=== PATIENT | male | born 1945 | race Caucasian/White ===

== ENCOUNTER 2021-05-19 14:18 | Inpatient (IN) | payer MEDICARE, OTHER ==
[2021-05-19 15:23] LABS: ALT (SGPT) 29 U/L (8-55); AST (SGOT) 32 U/L (5-34); Alkaline Phosphatase 116 U/L (40-110); Anion Gap 19 mmol/L (10-20); BUN (Urea Nitrogen) 34 mg/dL (8.4-25.7); Bilirubin, Total 1.5 mg/dL (0.2-1.2); Calc. Creatinine Clearance 0 mL/min (70-130); Carbon Dioxide 24 mmol/L (23-31); Chloride 103 mmol/L (98-107); Globulin 2.7 g/dL (2.4-3.5); Glucose 148 mg/dL (83-110); Potassium 4.5 mmol/L (3.5-5.1); Protein, Total 6.7 g/dL (5.8-8.1); Sodium 141 mmol/L (136-145)
[2021-05-19 15:25] LABS: #Monocytes 1.7 10x3/uL (0.0-1.1); #Neutrophils 12.9 10x3/uL (1.5-8.4); %Basophils 0.3 % (0.0-2.0); %Eosinophils 0.2 % (0.0-6.0); %Lymphocytes 7.3 % (18.0-47.0); %Monocytes 10.9 % (0.0-10.0); %Neutrophils 80.7 % (40.0-75.0); Mean Corpuscular HGB CONC 30.7 g/dL (32.0-36.0); Mean Corpuscular Hemoglobin 28.3 pg (27.0-33.0); Mean Corpuscular Volume 92.3 fl (81.2-95.1); Mean Platelet Volume 9.8 fl (7.4-10.4); Platelet Count 357 10x3/uL (150-450); RBC Distribution Width 14.8 % (11.5-14.5); Red Blood Cell (RBC) Count 4.94 10x6/uL (4.32-5.72)
[2021-05-19 16:31] LABS: Bilirubin 1+ (Negative); Blood, Urine 150 (Negative); Clarity Clear (Clear); Glucose, Urine (Dipstick) Normal (Negative); Ketone, Urine Negative (Negative); Leukocyte 25 (Negative); Nitrite Negative (Negative); Protein, Urine (Dipstick) 100 mg/dl (Neg-Trace); Specific Gravity, Urine 1.015 (1.002-1.036)
[2021-05-19 16:42] LABS: Bacteria/HPF Rare-Few HPF (None Seen); Squamous Epithelial 0-3 HPF (0-3); WBC/HPF 0-3 HPF (0-3)
[2021-05-19 16:43] LABS: Mucous/LPF Rare LPF (<2+); RBC/HPF Greater than 50 HPF (0-3)
[2021-05-19] MEDS ORDERED: metroNIDAZOLE 500 MG/100 ML BAG ONE (17:55)
[2021-05-19] MEDS ORDERED: cefTRIAXone\\ROCEPHIN 1 GM VIAL ONE (17:55)
[2021-05-19] MEDS ORDERED: Acetaminophen 325 MG TAB PO PRN (19:37)
[2021-05-19] MEDS ORDERED: Calcium Carbonate 500 MG ChewTAB PO PRN (19:37)
[2021-05-19] MEDS ORDERED: Dextrose 50% Abboject 50 ML SYRINGE SLOW IVP PRN (19:37)
[2021-05-19] MEDS ORDERED: Dextrose 5% in Water 1,000 ML IV PRN (19:37)
[2021-05-19] MEDS ORDERED: HYDROcodone/Acetaminophen 5/325 mg Tablet PO PRN (19:37)
[2021-05-19] MEDS ORDERED: HumaLOG 300 UNITS/3 ML VIAL SC PRN (19:37)
[2021-05-19] MEDS ORDERED: Senokot S 8.6-50 MG TAB PO PRN (19:37)
[2021-05-19 20:06] VITALS: BMI 32.5
[2021-05-19] MEDS ORDERED: Sodium Chloride 0.9% 500 ML IV SCH (20:30)
[2021-05-19] MEDS ORDERED: Dronedarone HCl 400 MG TAB PO SCH (20:30)
[2021-05-19] MEDS ORDERED: Pepto Bismol Chew TAB PO PRN (20:32)
[2021-05-19] MEDS ORDERED: Lantus 1000 UNITS/10 ML VIAL SC SCH (21:00)
[2021-05-19] MEDS ORDERED: Rosuvastatin 20 MG TAB PO SCH (21:00)
[2021-05-19] MEDS: Apixaban 5 MG TAB PO SCH (21:54)
[2021-05-19] MEDS: Famotidine 20 MG TAB PO SCH (21:54)
[2021-05-19] MEDS: metroNIDAZOLE 500 MG in Premix Bag 1 BAG IVPB SCH (21:57)
[2021-05-19 23:16] LABS: Lactic Acid 1.3 mmol/L (0.5-2.2)
[2021-05-20] MEDS ORDERED: FLU VACC QS2021-22(65YR UP)/PF 240 MCG/0.7 ML SYRINGE IM ONE (01:45)
[2021-05-20] MEDS: metroNIDAZOLE 500 MG in Premix Bag 1 BAG IVPB SCH (06:24)
[2021-05-20 06:57] LABS: Hemoglobin 12.9 g/dL (13.5-17.5); Mean Corpuscular HGB CONC 30.9 g/dL (32.0-36.0); Mean Corpuscular Hemoglobin 28.8 pg (27.0-33.0); Mean Corpuscular Volume 93.3 fl (81.2-95.1); Platelet Count 265 10x3/uL (150-450); RBC Distribution Width 14.9 % (11.5-14.5); Red Blood Cell (RBC) Count 4.48 10x6/uL (4.32-5.72); White Blood Cell (WBC) Count 10.4 10x3/uL (3.5-10.5)
[2021-05-20 07:02] LABS: Anion Gap 15 mmol/L (10-20); BUN (Urea Nitrogen) 32 mg/dL (8.4-25.7); Calc. Creatinine Clearance 64 mL/min (70-130); Calcium 8.3 mg/dL (7.8-10.44); Carbon Dioxide 25 mmol/L (23-31); Chloride 106 mmol/L (98-107); Glucose 139 mg/dL (83-110); Sodium 142 mmol/L (136-145)
[2021-05-20] MEDS ORDERED: Dronedarone HCl 400 MG TAB PO SCH ×2 (08:00→17:00)
[2021-05-20 08:25] LABS: MDiff Complete? YES
[2021-05-20 08:28] LABS: Lymphocytes 17 % (21-51); Monocytes 9 % (0-10); Neutrophil 74 % (42-75)
[2021-05-20 08:29] LABS: Platelet Morphology Comment Appears Adequate; RBC Morphology Normal
[2021-05-20] MEDS ORDERED: Gabapentin 300 MG CAP PO SCH ×2 (09:00→21:00)
[2021-05-20] MEDS ORDERED: Clopidogrel Bisulfate 75 MG TAB PO SCH (09:00)
[2021-05-20] MEDS ORDERED: Furosemide 20 MG TAB PO SCH (09:00)
[2021-05-20] MEDS ORDERED: Polyethylene Glycol 3350 17 GM Packet PO SCH (09:00)
[2021-05-20] MEDS: Famotidine 20 MG TAB PO SCH (10:24)
[2021-05-20] MEDS: Apixaban 5 MG TAB PO SCH (10:24)
[2021-05-20 11:21] VITALS: TEMP 98.7
[2021-05-20 11:22] VITALS: BP 108/70
[2021-05-20] MEDS ORDERED: HYDROcodone/Acetaminophen 10/325 mg Tablet PO SCH (14:00)
[2021-05-20 15:54] LABS: SARS-CoV-2 PCR by NAA Not Detected (NotDetected)
[2021-05-20] MEDS ORDERED: cefTRIAXone\\ROCEPHIN 2 GM in Sodium Chloride 0.9% 100 ML IVPB SCH (16:00)
[2021-05-20] MEDS ORDERED: Apixaban 5 MG TAB PO SCH (21:00)
[2021-05-20] MEDS ORDERED: Rosuvastatin 20 MG TAB PO SCH (21:00)
[2021-05-20] MEDS ORDERED: Famotidine 20 MG TAB PO SCH (21:00)
[2021-05-20] MEDS ORDERED: Potassium Chloride 20 MEQ TAB PO SCH (21:00)
[2021-05-20] MEDS ORDERED: Lantus 1000 UNITS/10 ML VIAL SC SCH (21:00)
[2021-05-20] MEDS ORDERED: DROXIDOPA 300 MG PO SCH (21:00)
[2021-05-21] MEDS ORDERED: Clopidogrel Bisulfate 75 MG TAB PO SCH (09:00)
[2021-05-21] MEDS ORDERED: Furosemide 20 MG TAB PO SCH (09:00)
[2021-05-21] MEDS ORDERED: Polyethylene Glycol 3350 17 GM Packet PO SCH (09:00)
== END 2021-05-20 13:08 | disposition home or self-care (01) | DRG 394 ==
LOC: CSHERS 14:18 → CSHTELE 14:19
PROVIDERS: ADMIT Internal Medicine; ATTEND Internal Medicine
DX: K62.89 Other specified diseases of anus and rectum (principal); I50.22 Chronic systolic (congestive) heart failure; N17.9 Acute kidney failure, unspecified; I13.0 Hypertensive heart and chronic kidney disease with heart failure and stage 1 through stage 4 chronic kidney disease, or unspecified chronic kidney disease; Z20.822 Contact with and (suspected) exposure to COVID-19; K59.03 Drug induced constipation; R53.81 Other malaise; E78.2 Mixed hyperlipidemia; N18.31 Chronic kidney disease, stage 3a; E11.65 Type 2 diabetes mellitus with hyperglycemia; E11.22 Type 2 diabetes mellitus with diabetic chronic kidney disease; G89.29 Other chronic pain; T40.2X5A Adverse effect of other opioids, initial encounter; I25.10 Atherosclerotic heart disease of native coronary artery without angina pectoris; Z79.02 Long term (current) use of antithrombotics/antiplatelets; Z79.01 Long term (current) use of anticoagulants; Z79.4 Long term (current) use of insulin; Z79.899 Other long term (current) drug therapy; Z95.810 Presence of automatic (implantable) cardiac defibrillator; Z95.5 Presence of coronary angioplasty implant and graft; Z95.1 Presence of aortocoronary bypass graft; Z87.891 Personal history of nicotine dependence
CPT/HCPCS: 36415; 36416; 74177; 80048; 80053; 81003; 81015; 83605; 83880; 85025; 90471; 90662; G0008; J0696; J1815; J7030; U0003; U0005

== ENCOUNTER 2021-11-24 01:18 | Observation (INO) | payer MEDICARE ==
[2021-11-24 03:25] LABS: #Monocytes 1.5 10x3/uL (0.0-1.1); #Neutrophils 13.8 10x3/uL (1.5-8.4); %Basophils 0.2 % (0.0-2.0); %Eosinophils 0.1 % (0.0-6.0); %Lymphocytes 5.2 % (18.0-47.0); %Neutrophils 84.9 % (40.0-75.0); Hemoglobin 16.5 g/dL (13.5-17.5); Mean Corpuscular HGB CONC 33.1 g/dL (32.0-36.0); Mean Corpuscular Hemoglobin 28.7 pg (27.0-33.0); Mean Corpuscular Volume 86.8 fl (81.2-95.1); Platelet Count 291 10x3/uL (150-450); RBC Distribution Width 17.6 % (11.5-14.5); Red Blood Cell (RBC) Count 5.75 10x6/uL (4.32-5.72); White Blood Cell (WBC) Count 16.2 10x3/uL (3.5-10.5)
[2021-11-24] MEDS ORDERED: Dextrose 50% Abboject 50 ML SYRINGE SLOW IVP PRN (05:43)
[2021-11-24] MEDS ORDERED: Ondansetron PF 4 MG/2 ML Vial IVP PRN (05:43)
[2021-11-24] MEDS ORDERED: Senokot S 8.6-50 MG TAB PO PRN (05:43)
[2021-11-24] MEDS ORDERED: Calcium Carbonate 500 MG ChewTAB PO PRN (05:43)
[2021-11-24] MEDS ORDERED: Dextrose 5% in Water 1,000 ML IV PRN (05:43)
[2021-11-24] MEDS ORDERED: Lactated Ringer's 1,000 ML IV SCH (06:00)
[2021-11-24 06:48] LABS: ALT (SGPT) 25 U/L (8-55); AST (SGOT) 51 U/L (5-34); Albumin 4.3 g/dL (3.4-4.8); Alkaline Phosphatase 95 U/L (40-110); Anion Gap 24 mmol/L (10-20); BUN (Urea Nitrogen) 21 mg/dL (8.4-25.7); Bilirubin, Total 1.5 mg/dL (0.2-1.2); Calc. Creatinine Clearance 0 mL/min (70-130); Calcium 9.7 mg/dL (7.8-10.44); Carbon Dioxide 18 mmol/L (23-31); Chloride 101 mmol/L (98-107); Globulin 3.9 g/dL (2.4-3.5); Glucose 258 mg/dL (83-110); Potassium 5.5 mmol/L (3.5-5.1); Protein, Total 8.2 g/dL (5.8-8.1); Sodium 137 mmol/L (136-145)
[2021-11-24] MEDS ORDERED: DROXIDOPA 300 MG PO SCH (09:00)
[2021-11-24] MEDS: cefTRIAXone\\ROCEPHIN 1 GM in Sodium Chloride 0.9% 100 ML IVPB SCH (09:07)
[2021-11-24] MEDS: Apixaban 5 MG TAB PO SCH ×2 (09:12→21:05)
[2021-11-24] MEDS: Dronedarone HCl 400 MG TAB PO SCH ×2 (09:12→16:42)
[2021-11-24] MEDS: Clopidogrel Bisulfate 75 MG TAB PO SCH (09:12)
[2021-11-24] MEDS: metroNIDAZOLE 500 MG in Premix Bag 1 BAG IVPB SCH ×2 (10:14→16:42)
[2021-11-24] MEDS: Famotidine 20 MG TAB PO SCH ×2 (10:21→21:05)
[2021-11-24] MEDS ORDERED: Saccharomyces boulardii 250 MG CAP PO SCH (11:00)
[2021-11-24 11:05] LABS: SARS-CoV-2 NAA Rapid Test Not Detected (NotDetected)
[2021-11-24] MEDS: Insulin Regular 300 UNITS/3 ML VIAL SC PRN ×3 (12:42→21:07)
[2021-11-24 15:29] LABS: Anion Gap 14 mmol/L (10-20); BUN (Urea Nitrogen) 25 mg/dL (8.4-25.7); Calc. Creatinine Clearance 80 mL/min (70-130); Calcium 8.8 mg/dL (7.8-10.44); Carbon Dioxide 25 mmol/L (23-31); Chloride 103 mmol/L (98-107); Glucose 331 mg/dL (83-110); Potassium 5.1 mmol/L (3.5-5.1); Sodium 137 mmol/L (136-145)
[2021-11-24] MEDS ORDERED: Lantus 1000 UNITS/10 ML VIAL SC SCH (21:00)
[2021-11-24] MEDS: Gabapentin 300 MG CAP PO SCH (21:04)
[2021-11-24] MEDS: Rosuvastatin 20 MG TAB PO SCH (21:05)
[2021-11-25] MEDS: metroNIDAZOLE 500 MG in Premix Bag 1 BAG IVPB SCH ×3 (00:44→16:24)
[2021-11-25 05:57] LABS: Hemoglobin 15.1 g/dL (13.5-17.5); Mean Corpuscular HGB CONC 33.6 g/dL (32.0-36.0); Mean Corpuscular Hemoglobin 28.9 pg (27.0-33.0); Mean Platelet Volume 10.8 fl (7.4-10.4); Platelet Count 252 10x3/uL (150-450); RBC Distribution Width 17.7 % (11.5-14.5); Red Blood Cell (RBC) Count 5.23 10x6/uL (4.32-5.72)
[2021-11-25 06:18] LABS: Anion Gap 17 mmol/L (10-20); BUN (Urea Nitrogen) 26 mg/dL (8.4-25.7); Calc. Creatinine Clearance 91 mL/min (70-130); Calcium 8.3 mg/dL (7.8-10.44); Carbon Dioxide 21 mmol/L (23-31); Chloride 108 mmol/L (98-107); Glucose 148 mg/dL (83-110); Potassium 5.4 mmol/L (3.5-5.1); Sodium 141 mmol/L (136-145)
[2021-11-25 06:34] LABS: MDiff Complete? YES
[2021-11-25 06:36] LABS: Band 5 % (5-11); Lymphocytes 5 % (21-51); Monocytes 14 % (0-10); Neutrophil 76 % (42-75)
[2021-11-25 06:38] LABS: Platelet Morphology Comment Appears Adequate; RBC Morphology Normal
[2021-11-25] MEDS: Saccharomyces boulardii 250 MG CAP PO SCH (08:52)
[2021-11-25] MEDS: Apixaban 5 MG TAB PO SCH ×2 (08:52→21:24)
[2021-11-25] MEDS: Dronedarone HCl 400 MG TAB PO SCH ×2 (08:52→16:22)
[2021-11-25] MEDS: Clopidogrel Bisulfate 75 MG TAB PO SCH (08:52)
[2021-11-25] MEDS: cefTRIAXone\\ROCEPHIN 1 GM in Sodium Chloride 0.9% 100 ML IVPB SCH (08:53)
[2021-11-25] MEDS: Famotidine 20 MG TAB PO SCH ×2 (08:53→21:25)
[2021-11-25] MEDS ORDERED: Non-Formulary Medication 1 EACH (Dulaglutide [Trulicity] 1.5 MG/0.5 ML Pen.Injctr) SC SCH (11:15)
[2021-11-25] MEDS: Insulin Regular 300 UNITS/3 ML VIAL SC PRN ×3 (12:23→21:26)
[2021-11-25] MEDS: Acetaminophen 325 MG TAB PO PRN (21:23)
[2021-11-25] MEDS: Gabapentin 300 MG CAP PO SCH (21:24)
[2021-11-25] MEDS: Rosuvastatin 20 MG TAB PO SCH (21:25)
[2021-11-26] MEDS: metroNIDAZOLE 500 MG in Premix Bag 1 BAG IVPB SCH ×3 (00:20→16:54)
[2021-11-26 04:47] LABS: #Eosinphils 0.1 10x3/uL (0.0-0.5); #Monocytes 1.6 10x3/uL (0.0-1.1); #Neutrophils 7.8 10x3/uL (1.5-8.4); %Basophils 0.3 % (0.0-2.0); %Eosinophils 1.1 % (0.0-6.0); %Lymphocytes 10.9 % (18.0-47.0); %Monocytes 14.6 % (0.0-10.0); %Neutrophils 72.8 % (40.0-75.0); Hemoglobin 14.1 g/dL (13.5-17.5); Mean Corpuscular Hemoglobin 28.1 pg (27.0-33.0); Mean Corpuscular Volume 87.6 fl (81.2-95.1); Mean Platelet Volume 10.6 fl (7.4-10.4); Platelet Count 223 10x3/uL (150-450); RBC Distribution Width 17.2 % (11.5-14.5); Red Blood Cell (RBC) Count 5.02 10x6/uL (4.32-5.72); White Blood Cell (WBC) Count 10.8 10x3/uL (3.5-10.5)
[2021-11-26] MEDS: Acetaminophen 325 MG TAB PO PRN ×2 (04:53→12:36)
[2021-11-26 05:05] LABS: Anion Gap 14 mmol/L (10-20); BUN (Urea Nitrogen) 28 mg/dL (8.4-25.7); Calc. Creatinine Clearance 94 mL/min (70-130); Carbon Dioxide 23 mmol/L (23-31); Chloride 107 mmol/L (98-107); Glucose 237 mg/dL (83-110); Potassium 3.9 mmol/L (3.5-5.1); Sodium 140 mmol/L (136-145)
[2021-11-26] MEDS ORDERED: metroNIDAZOLE 500 MG/100 ML BAG ONE (08:17)
[2021-11-26] MEDS: cefTRIAXone\\ROCEPHIN 1 GM in Sodium Chloride 0.9% 100 ML IVPB SCH (08:27)
[2021-11-26] MEDS: Saccharomyces boulardii 250 MG CAP PO SCH (08:28)
[2021-11-26] MEDS: Clopidogrel Bisulfate 75 MG TAB PO SCH (08:28)
[2021-11-26] MEDS: Apixaban 5 MG TAB PO SCH ×2 (08:29→20:40)
[2021-11-26] MEDS: Dronedarone HCl 400 MG TAB PO SCH ×2 (08:29→16:54)
[2021-11-26] MEDS: Famotidine 20 MG TAB PO SCH ×2 (08:29→20:40)
[2021-11-26] MEDS: Lantus 1000 UNITS/10 ML VIAL SC SCH (08:45)
[2021-11-26] MEDS ORDERED: GoLYTELY 4,000 ml Bottle PO SCH (13:00)
[2021-11-26 13:15] LABS: Hemoglobin A1c 7.7 % (4.0-6.0)
[2021-11-26] MEDS: Insulin Regular 300 UNITS/3 ML VIAL SC PRN ×2 (16:52→23:57)
[2021-11-26] MEDS: Gabapentin 300 MG CAP PO SCH (20:39)
[2021-11-26] MEDS: Rosuvastatin 20 MG TAB PO SCH (20:40)
[2021-11-27] MEDS: Acetaminophen 325 MG TAB PO PRN (05:54)
[2021-11-27 06:53] LABS: Bilirubin Neg (Negative); Blood, Urine 250 (Negative); Clarity Slightly Cloudy (Clear); Glucose, Urine (Dipstick) 250 mg/dL (Negative); Ketone, Urine Negative (Negative); Leukocyte 25 (Negative); Nitrite Negative (Negative); Protein, Urine (Dipstick) 100 mg/dl (Neg-Trace); Specific Gravity, Urine 1.015 (1.002-1.036); Urobilinogen Normal mg/dL (Less than 2)
[2021-11-27 07:02] LABS: Bacteria/HPF None Seen HPF (None Seen); RBC/HPF Greater than 50 HPF (0-3); Squamous Epithelial 0-3 HPF (0-3); WBC/HPF 0-3 HPF (0-3)
[2021-11-27 08:22] VITALS: TEMP 98.8
[2021-11-27] MEDS: cefTRIAXone\\ROCEPHIN 1 GM in Sodium Chloride 0.9% 100 ML IVPB SCH ×2 (09:46→10:02)
[2021-11-27] MEDS: metroNIDAZOLE 500 MG in Premix Bag 1 BAG IVPB SCH ×3 (09:48→10:03)
[2021-11-27] MEDS: Dronedarone HCl 400 MG TAB PO SCH ×2 (09:49→10:03)
[2021-11-27] MEDS: Clopidogrel Bisulfate 75 MG TAB PO SCH (09:49)
[2021-11-27] MEDS: Saccharomyces boulardii 250 MG CAP PO SCH (09:49)
[2021-11-27] MEDS: Famotidine 20 MG TAB PO SCH (09:49)
[2021-11-27] MEDS: Apixaban 5 MG TAB PO SCH (09:49)
[2021-11-27] MEDS: Lantus 1000 UNITS/10 ML VIAL SC SCH (09:51)
[2021-11-27 14:23] VITALS: BP 113/62
== END 2021-11-27 11:04 | disposition home or self-care (01) ==
LOC: CSHERS 01:18 → SUATTDRO 01:18 → INTOOBSV 07:37 → CSHTELE 07:37
PROVIDERS: ADMIT Student in an Organized Health Care Education/Training Program; ATTEND Internal Medicine
DX: K59.03 Drug induced constipation (principal); T40.2X5A Adverse effect of other opioids, initial encounter; E86.0 Dehydration; N18.31 Chronic kidney disease, stage 3a; Z95.810 Presence of automatic (implantable) cardiac defibrillator; Z95.1 Presence of aortocoronary bypass graft; Z79.01 Long term (current) use of anticoagulants; Z79.02 Long term (current) use of antithrombotics/antiplatelets; E11.22 Type 2 diabetes mellitus with diabetic chronic kidney disease; I13.0 Hypertensive heart and chronic kidney disease with heart failure and stage 1 through stage 4 chronic kidney disease, or unspecified chronic kidney disease; I50.22 Chronic systolic (congestive) heart failure; I25.10 Atherosclerotic heart disease of native coronary artery without angina pectoris; Z95.5 Presence of coronary angioplasty implant and graft; E78.5 Hyperlipidemia, unspecified; Z79.899 Other long term (current) drug therapy; Z79.4 Long term (current) use of insulin; Z87.891 Personal history of nicotine dependence; Z20.822 Contact with and (suspected) exposure to COVID-19
CPT/HCPCS: 74176; 80048 ×3; 80053; 81001; 82962 ×4; 83036; 85025 ×3; 87324; 87449; 96374; 96375; 96376 ×4; 97110; 97116; 97139; 99285; G0378 ×5; U0002; 36415; 36416; J0696; J1815; J2405; J3490; J7120

== ENCOUNTER 2022-05-05 12:29 | Outpatient (CLI) | payer MEDICARE | END 2022-05-05 12:30 | disposition home or self-care (01) | LOC: CSHSPEC 12:29 | PROVIDERS: ATTEND Specialist | DX: M51.16 Intervertebral disc disorders with radiculopathy, lumbar region (principal); Z95.0 Presence of cardiac pacemaker; M47.816 Spondylosis without myelopathy or radiculopathy, lumbar region | CPT/HCPCS: 71045; 72148 ==

== ENCOUNTER 2023-03-07 16:53 | Inpatient (IN) | payer MEDICARE ==
[2023-03-07 17:40] LABS: #Eosinphils 0.1 10x3/uL (0.0-0.5); #Monocytes 1.2 10x3/uL (0.0-1.1); #Neutrophils 8.1 10x3/uL (1.5-8.4); %Basophils 0.3 % (0.0-2.0); %Eosinophils 0.9 % (0.0-6.0); %Lymphocytes 9.8 % (18.0-47.0); %Monocytes 11.4 % (0.0-10.0); %Neutrophils 77.1 % (40.0-75.0); Hematocrit 36.5 % (38.8-50.0); Hemoglobin 10.9 g/dL (13.5-17.5); Mean Corpuscular HGB CONC 29.9 g/dL (32.0-36.0); Mean Corpuscular Volume 83.7 fl (81.2-95.1); Mean Platelet Volume 10.6 fl (7.4-10.4); Platelet Count 348 10x3/uL (150-450); Red Blood Cell (RBC) Count 4.36 10x6/uL (4.32-5.72); White Blood Cell (WBC) Count 10.5 10x3/uL (3.5-10.5)
[2023-03-07 18:18] LABS: INR-International Normal Ratio 1.3; PTT 22.2 sec (22.0-33.0); Prothrombin Time 13.9 sec (9.5-12.1)
[2023-03-07 18:21] LABS: ALT (SGPT) 18 U/L (8-55); AST (SGOT) 26 U/L (5-34); Albumin 3.3 g/dL (3.4-4.8); Alkaline Phosphatase 123 U/L (40-110); Anion Gap 17 mmol/L (10-20); BUN (Urea Nitrogen) 37 mg/dL (8.4-25.7); Bilirubin, Total 0.7 mg/dL (0.2-1.2); Calc. Creatinine Clearance 0 mL/min (70-130); Calcium 8.5 mg/dL (7.8-10.44); Carbon Dioxide 24 mmol/L (23-31); Chloride 100 mmol/L (98-107); Estimated GFR 39; Globulin 3.1 g/dL (2.4-3.5); Glucose 196 mg/dL (83-110); Lipase 6 U/L (8-78); Magnesium 2.4 mg/dL (1.6-2.6); Potassium 4.2 mmol/L (3.5-5.1); Protein, Total 6.4 g/dL (5.8-8.1); Sodium 137 mmol/L (136-145)
[2023-03-07 18:29] LABS: Troponin I 0.057 ng/mL (< 0.028)
[2023-03-07] MEDS ORDERED: Furosemide 40 MG/4 ML VIAL ONE (20:07)
[2023-03-07] MEDS ORDERED: HYDROcodone/Acetaminophen 5/325 mg Tablet PO PRN (20:19)
[2023-03-07] MEDS ORDERED: Senokot S 8.6-50 MG TAB PO PRN (20:19)
[2023-03-07] MEDS ORDERED: Calcium Carbonate 500 MG ChewTAB PO PRN (20:19)
[2023-03-07] MEDS ORDERED: Dextrose 50% Abboject 50 ML SYRINGE SLOW IVP PRN (20:19)
[2023-03-07] MEDS ORDERED: Guaifenesin DM 100-10/5 ML UDCUP PO PRN (20:19)
[2023-03-07] MEDS ORDERED: Glucagon 1 MG/ML KIT IM PRN (20:19)
[2023-03-07] MEDS ORDERED: Ondansetron PF 4 MG/2 ML Vial IVP PRN (20:19)
[2023-03-07] MEDS ORDERED: Dextrose 5% in Water 1,000 ML IV PRN (20:19)
[2023-03-07] MEDS ORDERED: DROXIDOPA 300 MG PO SCH (21:00)
[2023-03-07] MEDS ORDERED: Non-Formulary Medication 1 EACH (Magnesium Glycinate [Magnesium Glycinate] 100 MG Capsule) PO SCH (21:00)
[2023-03-07] MEDS: Rosuvastatin 20 MG TAB PO SCH (22:20)
[2023-03-07] MEDS: Apixaban 5 MG TAB PO SCH (22:20)
[2023-03-07] MEDS: Famotidine 20 MG TAB PO SCH (22:20)
[2023-03-07] MEDS: Midodrine HCl 5 MG TAB PO SCH (22:20)
[2023-03-07] MEDS: Lantus 1000 UNITS/10 ML VIAL SC SCH (22:22)
[2023-03-08 04:39] LABS: #Eosinphils 0.1 10x3/uL (0.0-0.5); #Monocytes 1.5 10x3/uL (0.0-1.1); #Neutrophils 8.2 10x3/uL (1.5-8.4); %Basophils 0.4 % (0.0-2.0); %Eosinophils 0.9 % (0.0-6.0); %Lymphocytes 12.7 % (18.0-47.0); %Monocytes 12.9 % (0.0-10.0); %Neutrophils 72.5 % (40.0-75.0); Mean Corpuscular HGB CONC 28.9 g/dL (32.0-36.0); Mean Corpuscular Hemoglobin 25.1 pg (27.0-33.0); Mean Corpuscular Volume 86.8 fl (81.2-95.1); Mean Platelet Volume 10.8 fl (7.4-10.4); Platelet Count 325 10x3/uL (150-450); Red Blood Cell (RBC) Count 4.38 10x6/uL (4.32-5.72); White Blood Cell (WBC) Count 11.4 10x3/uL (3.5-10.5)
[2023-03-08 06:02] LABS: Anion Gap 19 mmol/L (10-20); BUN (Urea Nitrogen) 37 mg/dL (8.4-25.7); Calc. Creatinine Clearance 60 mL/min (70-130); Calcium 8.6 mg/dL (7.8-10.44); Carbon Dioxide 21 mmol/L (23-31); Chloride 105 mmol/L (98-107); Estimated GFR 38; Glucose 121 mg/dL (83-110); Potassium 4.1 mmol/L (3.5-5.1); Sodium 141 mmol/L (136-145)
[2023-03-08] MEDS: Furosemide 100 MG/10 ML VIAL SLOW IVP SCH (06:28)
[2023-03-08] MEDS: Apixaban 5 MG TAB PO SCH ×2 (09:06→21:02)
[2023-03-08] MEDS: Famotidine 20 MG TAB PO SCH ×2 (09:06→21:02)
[2023-03-08] MEDS: Digoxin 0.125 MG TAB PO SCH (09:06)
[2023-03-08] MEDS: Clopidogrel Bisulfate 75 MG TAB PO SCH (09:06)
[2023-03-08] MEDS: Midodrine HCl 5 MG TAB PO SCH ×3 (09:07→21:02)
[2023-03-08] MEDS: Potassium Chloride 20 MEQ TAB PO SCH (09:07)
[2023-03-08] MEDS: CO Q-10 CAPSULE 50 MG PO SCH (09:08)
[2023-03-08 13:09] LABS: Hemoglobin A1c 7.1 % (4.0-6.0)
[2023-03-08 13:11] VITALS: BMI 31.4
[2023-03-08] MEDS: HumaLOG 300 UNITS/3 ML VIAL SC PRN (13:44)
[2023-03-08] MEDS ORDERED: Furosemide 40 MG/4 ML VIAL SLOW IVP SCH (14:00)
[2023-03-08] MEDS: Acetaminophen 325 MG TAB PO PRN ×2 (14:23→21:02)
[2023-03-08] MEDS: Lantus 1000 UNITS/10 ML VIAL SC SCH (21:02)
[2023-03-08] MEDS: Rosuvastatin 20 MG TAB PO SCH (21:02)
[2023-03-09] MEDS: Acetaminophen 325 MG TAB PO PRN (00:54)
[2023-03-09] MEDS: HumaLOG 300 UNITS/3 ML VIAL SC PRN (00:54)
[2023-03-09] MEDS: Furosemide 100 MG/10 ML VIAL SLOW IVP SCH (06:35)
[2023-03-09 06:50] LABS: Hematocrit 35.6 % (38.8-50.0); Hemoglobin 10.8 g/dL (13.5-17.5); Mean Corpuscular HGB CONC 30.3 g/dL (32.0-36.0); Mean Corpuscular Hemoglobin 25.2 pg (27.0-33.0); Mean Corpuscular Volume 83.2 fl (81.2-95.1); Red Blood Cell (RBC) Count 4.28 10x6/uL (4.32-5.72); White Blood Cell (WBC) Count 10.4 10x3/uL (3.5-10.5)
[2023-03-09 06:51] LABS: #Neutrophils 7.5 10x3/uL (1.5-8.4); %Basophils 0.3 % (0.0-2.0); %Eosinophils 0.9 % (0.0-6.0); %Lymphocytes 11.4 % (18.0-47.0); %Monocytes 14.3 % (0.0-10.0); %Neutrophils 72.5 % (40.0-75.0); Mean Platelet Volume 10.8 fl (7.4-10.4); Platelet Count 331 10x3/uL (130-400)
[2023-03-09 06:52] LABS: #Eosinphils 0.1 10x3/uL (0.0-0.5); #Monocytes 1.5 10x3/uL (0.0-1.1)
[2023-03-09 07:00] LABS: Anion Gap 18 mmol/L (10-20); BUN (Urea Nitrogen) 47 mg/dL (8.4-25.7); Calc. Creatinine Clearance 51 mL/min (70-130); Calcium 8.6 mg/dL (7.8-10.44); Carbon Dioxide 23 mmol/L (23-31); Chloride 102 mmol/L (98-107); Estimated GFR 32; Glucose 184 mg/dL (83-110); Potassium 3.7 mmol/L (3.5-5.1); Sodium 139 mmol/L (136-145)
[2023-03-09 07:45] LABS: Troponin I 0.064 ng/mL (< 0.028)
[2023-03-09] MEDS ORDERED: Famotidine 20 MG TAB PO SCH (09:00)
[2023-03-09] MEDS: Digoxin 0.125 MG TAB PO SCH (09:50)
[2023-03-09] MEDS: CO Q-10 CAPSULE 50 MG PO SCH (09:51)
[2023-03-09] MEDS: Potassium Chloride 20 MEQ TAB PO SCH (09:51)
[2023-03-09] MEDS: Apixaban 5 MG TAB PO SCH (09:51)
[2023-03-09] MEDS: Midodrine HCl 5 MG TAB PO SCH ×2 (09:51→15:40)
[2023-03-09] MEDS: Clopidogrel Bisulfate 75 MG TAB PO SCH (09:51)
[2023-03-09 12:44] VITALS: BP 111/57; TEMP 97.5
[2023-03-09] MEDS ORDERED: Furosemide 40 MG TAB PO SCH (14:00)
== END 2023-03-09 16:17 | disposition home or self-care (01) | DRG 291 ==
LOC: CSHERS 16:53 → CSHTELE 20:28 → OBSVTOIN 20:28
PROVIDERS: ADMIT Student in an Organized Health Care Education/Training Program; ATTEND Hospitalist
PROC: 5A09357 Assistance with Respiratory Ventilation, Less than 24 Consecutive Hours, Continuous Positive Airway Pressure (ICD-10-PCS; principal; 2023-03-07)
PROC: 5A09357 Assistance with Respiratory Ventilation, Less than 24 Consecutive Hours, Continuous Positive Airway Pressure (ICD-10-PCS; 2023-03-08)
DX: I13.0 Hypertensive heart and chronic kidney disease with heart failure and stage 1 through stage 4 chronic kidney disease, or unspecified chronic kidney disease (principal); I50.23 Acute on chronic systolic (congestive) heart failure; N18.30 Chronic kidney disease, stage 3 unspecified; E11.22 Type 2 diabetes mellitus with diabetic chronic kidney disease; D63.1 Anemia in chronic kidney disease; G89.29 Other chronic pain; I48.0 Paroxysmal atrial fibrillation; G47.33 Obstructive sleep apnea (adult) (pediatric); I49.5 Sick sinus syndrome; I25.10 Atherosclerotic heart disease of native coronary artery without angina pectoris; E78.5 Hyperlipidemia, unspecified; I08.1 Rheumatic disorders of both mitral and tricuspid valves; E66.01 Morbid (severe) obesity due to excess calories; I25.5 Ischemic cardiomyopathy; I95.1 Orthostatic hypotension; Z51.5 Encounter for palliative care; Z88.0 Allergy status to penicillin; Z79.01 Long term (current) use of anticoagulants; Z79.899 Other long term (current) drug therapy; Z79.4 Long term (current) use of insulin; Z90.49 Acquired absence of other specified parts of digestive tract; Z95.810 Presence of automatic (implantable) cardiac defibrillator; Z98.890 Other specified postprocedural states; Z95.1 Presence of aortocoronary bypass graft; Z95.5 Presence of coronary angioplasty implant and graft; Z87.891 Personal history of nicotine dependence; Z68.31 Body mass index [BMI] 31.0-31.9, adult
CPT/HCPCS: 36415; 36416; 71045; 80048; 80053; 83036; 83690; 83735; 83880; 84443; 84484; 85025; 85610; 85730; 93005; 93010; 93306; 94660; 94760; 94762; 96374; J1040; J1815; J1940; J2001; Q9967; S0020